=== PATIENT | male | born 1980 | race Caucasian/White ===

== ENCOUNTER 2017-07-02 12:32 | Inpatient (IN) ==
[2017-07-02] MEDS ORDERED: MULTI-VITAMIN PLAIN TABLET PO ONE (14:06)
[2017-07-02] MEDS ORDERED: NS 1,000 ML IV ONE (14:06)
--- NOTE | 2017-07-02 14:06 | Emergency Department Report ---
Alcohol HPI - General Chief Complaint: Alcohol Stated Complaint: detox,seizures Time Seen by Provider: 07/02/17 12:40 Source: patient, RN notes reviewed, old records reviewed Mode of arrival: wheelchair Limitations: no limitations - History of Present Illness HPI narrative: 37yo man presented to the ER for evaluation of alcohol +/- withdrawal. Per staff : pt has been staying at a local homeless retirement. Has been drinking heavily since his released from [place]. The retirement can no longer help/care for him. Other facilities in the area will no longer accept the pt. He is a vet, so [facility] Pt has been drinking 2 pints of alcohol daily MD complaint: alcohol intoxication, alcohol withdrawal, alcohol dependence Last drink: just [employer] Chronic alcohol use: Yes Previous visits for alcohol intoxication: Yes Recent trauma: No Treatments prior to arrival: none - Related Data Home Medications Medication Instructions Recorded Confirmed Ibuprofen 200 mg PO Q4H PRN 07/02/17 07/02/17 Allergies Allergy/AdvReac Type Severity Reaction Status Date / Time No Known Allergies Allergy Verified 07/02/17 13:13 Review of Systems Limitations: ROS unobtainable due to patient's medical condition PFSH Patient Stated Medical History Sleep Apnea Yes Hepatitis Yes Ulcer Yes Other GI Yes: liver disease stage 4 Other Yes: Dark urine Other Hematologic Yes: Hepatitis C Depression Yes Substance Use Disorder Yes: Heroin Medical History Updates: Chronic alcoholism - Social History Smoking status: Current every day smoker Substance use type: heroin Alcohol intake frequency: 3 or more drinks per day Current residence: Apartment/Private Home Physical Exam - Limitations Limitations: no limitations - General General appearance: appears intoxicated, other (Sleeping; arousable) - Normal Exams: Head:: Normocephalic without trauma Eyes:: Pupils are PERRLA w/ EOMI, No scleral icterus, irritation, or foreign bodies noted ENMT:: No facial trauma, nasal exudates, pharyngeal erythema, or exudates are noted Neck:: Full range of motion, without adenopathy Chest/Respirations:: Clear all kimble, with good airflow Cardiovascular:: Regular rate and rhythm, without murmur or gallop Abdomen:: Bowel sounds positive, soft, non-tender Lymphatic:: No lymphadenopathy Musculoskeletal:: No tenderness, or deformity noted Integumentary:: No rashes, hives, or bruising noted Neurological:: cranial nerves, motor/sensory/cerebellar, exams w/o gross deficits - Psychiatric Psychiatric exam: Present: other (Intoxicated) Course - Consultations Consultation #1: Hospitalist: Discussed pt with hospitalist and possible dispo. After discussion , hospitalist will admit for continued treatment. Time: 15:45 Vital Signs Temperature 98 F 07/02/17 12:50 Pulse Rate 132 H 07/02/17 12:50 Respiratory Rate 25 H 07/02/17 12:50 Blood Pressure 138/94 H 07/02/17 12:50 Pulse Oximetry 97 07/02/17 12:50 Temperature 98 F 07/02/17 12:50 Pulse Rate 111 H 07/02/17 13:45 Respiratory Rate 22 07/02/17 13:45 Blood Pressure 149/86 H 07/02/17 13:45 Pulse Oximetry 93 07/02/17 13:45 Alcohol - MDM Narrative Medical decision making narrative: Acutely intoxicated pt with elevated gap, dehydration, and numerous electrolyte abn's. After obs and treatment in the ER, contacted hospitalist, who will admit pt for further eval/treatment. Discussed pts Peer Daisy and 'Trey Butler's' attempts [facility]. - Differential Diagnosis Differential diagnosis: Likely: alcohol withdrawal delirium, hypomagnesemia, alcohol intoxication, alcohol withdrawal syndrome - Medical Records Attestation: I reviewed the patient's medical records. - Lab Data Attestation: I reviewed the patient's lab results. Result diagrams: 07/02/17 14:24 07/02/17 14:24 - Radiology Data Attestation: I reviewed the patient's radiology results. Disposition Clinical Impression: Dehydration, Hypokalemia Alcoholic intoxication Qualifiers: Complication of substance-induced condition: with unspecified complication Qualified Code(s): F10.929 - Alcohol use, unspecified with intoxication, unspecified Disposition: 02 To [facility] [place] Condition: Improved Time of Disposition: 16:00 - Seen By: physician
[2017-07-02] MEDS: SALINE FLUSH 10ml SYRINGE IVF PRN ×3 (14:21→23:28)
--- NOTE | 2017-07-02 14:28 | XRay Report ---
Indication: EtOH intox PROCEDURE: XR chest 1V: Encounter: Initial Comparison: November 14, 2016 FINDINGS: The lungs are clear. There is no abnormal airspace opacity, pleural effusion or pneumothorax identified. The heart size, pulmonary vasculature and mediastinum are within normal limits. No significant skeletal abnormality is seen. IMPRESSION: No acute cardiopulmonary abnormality. .
[2017-07-02] MEDS ORDERED: POTASSIUM CHLORIDE INJ 20 MEQ in NS 1,000 ML IV ONE (14:50)
[2017-07-02] MEDS ORDERED: NS with KCL 20 mEq 1,000 ML IV ONE (15:15)
[2017-07-02] MEDS ORDERED: PHENOBARBITAL 130mg/ml INJECTION IV PRN (16:22)
[2017-07-02] MEDS ORDERED: FOLIC ACID 5 MG/ML INJECTION IVP SCH (16:22)
[2017-07-02] MEDS ORDERED: THIAMINE 200mg/2ml INJECTION IVP SCH (16:22)
[2017-07-02] MEDS ORDERED: NITROGLYCERIN 0.1 MG/HR PATCH TD PRN (16:29)
[2017-07-02 16:31] VITALS: BMI 28.8
--- NOTE | 2017-07-02 16:38 | History & Physical Report ---
History of Present Illness Date: 07/02/17 Chief complaint: acute alcohol intoxication, hypokalemia HPI: Patient is a 37-year-old male with a long-standing history of alcohol abuse. Patient resides in [place] with his , and reports that he has been drinking a 5th of vodka daily for the past 3 or 4 months. reports recently she told patient he needs to live elsewhere if he is going to continue to use alcohol daily. Though patient denies being acutely homicidal or suicidal, does report that last week he did make a statement about jumping off stand [place] and ending his life. He has never had a previous suicide attempt. He was brought to the emergency room due to his acute intoxication for further evaluation and treatment. He was found to be significantly dehydrated with a sodium of 146 and potassium of 2.2. LFTs are elevated with an AST of 263, ALT 121, total bilirubin 2.3. Quantitative alcohol is 387. He is noted to be tachycardic with a heart rate in the 120s. Given this acute status, accompanied with electrolyte abnormalities. The hospitalist services were contacted and accepted patient for inpatient admission for further evaluation and treatment. Review of Systems All systems PM: 10-point ROS was reviewed, no additional remarkable complaints except - Gastrointestinal Gastrointestinal: Present: nausea - Neurological Neurological: Present: tremor(s) Past Medical History Medical History Updates: Chronic alcoholism. Hepatitis C. 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 Housing: apartment (with ) Current occupational status: unemployed Current residence: Apartment/Private Home Social history: No PCP Medications Home Medications Medication Instructions Recorded Confirmed Type Ibuprofen 200 mg PO Q4H PRN 07/02/17 07/02/17 History Allergies Allergy/AdvReac Type Severity Reaction Status Date / Time No Known Allergies Allergy Verified 07/02/17 13:13 Exam Vital Signs: Temperature 95.4 F L 07/02/17 16:22 Pulse Rate 127 H 07/02/17 16:22 Respiratory Rate 20 07/02/17 16:22 Blood Pressure 120/66 07/02/17 16:22 Pulse Oximetry 95 07/02/17 16:22 Telemetry Rhythm: Sinus Tachycardia (120) Height/Weight/BMI: Height 1.7 m Weight 83.4 kg Body Mass Index 28.8 - Constitutional Present: no acute distress, well nourished, well developed - Routine HEENT Exam Eye: Present: EOMI ENT: Present: mucous membranes moist, dentition normal - Routine Respiratory Exam Present: CTA bilaterally. Absent: wheezes - Routine Cardiovascular Exam Present: RRR, S1, S2, tachycardia. Absent: murmur - Routine Abdominal Exam Present: soft, normoactive bowel sounds, tenderness (Epigastric), non distended - Routine Extremities Exam Present: full ROM - Routine Back/Spine/Pelvis Exam Back/Spine: Present: full ROM - Routine Skin Exam Present: intact, dry, warm - Routine Neurological Exam Present: alert, oriented X3, CN II-XII intact, tremors (Bilateral hands) - Routine Psychiatric Exam Present: normal affect, cooperative Results - Labs CBC & Chem 7: 07/02/17 14:24 07/02/17 14:24 Assessment and Plan (1) Alcoholic intoxication Current visit: Yes Status: Acute (2) Hypokalemia Current visit: Yes Status: Acute Assessment and Plan: Impression Acute alcohol intoxication- with chronic alcohol use Hypokalemia- POA 2.2 Hypernatremia- POA- 146 Elevated LFTs- POA Thrombocytopenia Nausea/vomiting History of hepatitis C Tobacco Dependence Plan Admit patient inpatient status under care of Dr. Isabel for acute alcohol intoxication, Hypokalemia with hypernatremia Seizure precautions, Ativan as needed. Patient did receive a one-time dose of Librium while in the emergency room. Continue with IV fluids for ongoing hydration Zofran and Reglan as needed for nausea Protonix 40 milligrams IV twice a day for protection. Given epigastric tenderness Will replace IV potassium, patient also received a one-time dose of oral potassium in the emergency room. Due to chronic alcohol use. We will replace thiamine, folate and multivitamin, vitamins. Obtain INR, Mg, Phos, TSH for laboratory completeness Monitor on cardiac telemetry Nicotine patch as needed given tobacco dependence Recheck CBC and CMP tomorrow morning to follow blood counts, renal function and electrolytes Will discuss further orders and plan of care with attending, Dr. Isabel DVT Prophylaxis: SCD's GI Prophylaxis: Protonix Resuscitation Status: Full Code - Physician Narrative Physician: Ron Isabel MD Narrative: Date: 07/02/17 Time: 1633 Have independently interviewed and examined pt. Chart reviewed. Case discussed with ED provider and my FLY WINDER. Care plan developed with my supervision; agree with above. Presents to ED secondary to continued daily ETOH consumption with increased n/v and limited oral intake over the past 5 days. No blood in emesis. 'Hemorrhoids' have been bleeding secondary loose stools. Some cough congestion. having increasing difficulty handling him at home. Lungs: decreased CV: regular MSE: intoxicated. Plan: Inpatient admission for correct of profound hypokalemia in patient with chronic Etoh use. Replace potassium-monitor lab. IVF for hydration. ETOH detox orders. IV Protonix. Zofran prn nausea. Psych consult due to anxiety. SCD for DVT prevention-avoid heparin/Lovenox. Hospital Course Summary Disclaimer: The visit summary below is not to be considered part of the above Progress Note. Hospital Course: Impression Acute alcohol intoxication- with chronic alcohol use Hypokalemia- POA 2.2 Hypernatremia- POA- 146 Elevated LFTs- POA Thrombocytopenia Nausea/vomiting History of hepatitis C Tobacco Dependence Plan Admit patient inpatient status under care of Dr. Isabel for acute alcohol intoxication, Hypokalemia with hypernatremia. Seizure precautions, Ativan as needed. Patient did receive a one-time dose of Librium while in the emergency room. Continue with IV fluids for ongoing hydration. Zofran and Reglan as needed for nausea. Protonix 40 milligrams IV twice a day for protection. Given epigastric tenderness and due to suspected alcohol gastritis. Will replace IV potassium, patient also received a one-time dose of oral potassium in the emergency room. Due to chronic alcohol use. We will replace thiamine, folate and multivitamin, vitamins. Obtain INR, Mg, Phos, TSH for laboratory completeness. Monitor on cardiac telemetry. Nicotine patch as needed given tobacco dependence. Recheck CBC and CMP tomorrow morning to follow blood counts, renal function and electrolytes.
[2017-07-02] MEDS: ONDANSETRON 4 MG/2 ML INJECTION IVP PRN (17:18)
[2017-07-02] MEDS: 1/2 NS 1,000 ML IV SCH (17:23)
[2017-07-02] MEDS: PANTOPRAZOLE 40 MG INJECTION IVP SCH ×2 (17:23→23:28)
[2017-07-02] MEDS: THIAMINE 100 MG in NS 50 ML IV SCH (17:47)
[2017-07-02] MEDS ORDERED: PROMETHAZINE 25 MG INJECTION IM PRN (18:13)
[2017-07-02] MEDS: LIDOCAINE 1% INJ 10 MG, POTASSIUM CHLORIDE INJ 10 MEQ in NS 100 ML IV SCH ×4 (18:55→22:28)
[2017-07-02] MEDS: METOCLOPRAMIDE 10mg/2ml INJECTION IVP PRN (20:24)
[2017-07-02] MEDS: FOLIC ACID INJ 1 MG in NS 50 ML IVP SCH (23:29)
[2017-07-03] MEDS: SALINE FLUSH 10ml SYRINGE IVF PRN (01:35)
[2017-07-03] MEDS: ONDANSETRON 4 MG/2 ML INJECTION IVP PRN (09:31)
[2017-07-03] MEDS: PANTOPRAZOLE 40 MG INJECTION IVP SCH ×2 (09:31→21:46)
[2017-07-03] MEDS: 1/2 NS 1,000 ML IV SCH ×2 (09:32→14:22)
--- NOTE | 2017-07-03 09:42 | Progress Note ---
- Date 07/03/17 Subjective: Alphonse is seen this morning in follow up. He is eating some breakfast liquids and reports that he continues to feel nausea however wants to eat. Tremors have improved however he reports not sleeping well overnight due anxiety. Denies having chest pain, shortness of breath or other GI complaints. Potassium remains low at 2.0. Noted to have a low grade fever this morning at 100.1. Remains tachycardic 115. Objective Vital signs: Temperature 100.1 F 07/03/17 08:00 Pulse Rate 115 H 07/03/17 08:00 Respiratory Rate 16 07/03/17 08:00 Blood Pressure 135/85 07/03/17 08:00 Pulse Oximetry 94 07/03/17 00:40 Height/Weight/BMI: Height 1.7 m Weight 86 kg Body Mass Index 28.8 - Constitutional Present: no acute distress, well nourished, well developed - Routine HEENT Exam Eye: Present: EOMI ENT: Present: mucous membranes moist, dentition normal - Routine Respiratory Exam Present: CTA bilaterally. Absent: wheezes - Routine Cardiovascular Exam Present: RRR, S1, S2. Absent: murmur - Routine Abdominal Exam Present: soft, normoactive bowel sounds, non distended. Absent: tenderness - Routine Extremities Exam Present: no edema, pulses intact - Routine Skin Exam Present: intact, dry, warm - Routine Neurological Exam Present: alert, oriented X3, CN II-XII intact, moving all extremities - Routine Lymphatic Exam Lymphatic: Absent: adenopathy - Routine Psychiatric Exam Present: cooperative, anxious Results - Labs CBC & Chem 7: 07/03/17 04:45 07/03/17 10:49 Assessment and Plan (1) Alcoholic intoxication Current visit: Yes Status: Acute (2) Hypokalemia Current visit: Yes Status: Acute Assessment and Plan: Impression Acute alcohol intoxication- with chronic alcohol use Hypokalemia- POA 2.2 Hypernatremia- POA- 146 Hypomagnesemia-07/03/17-RLL Elevated LFTs- POA Thrombocytopenia Nausea/vomiting History of hepatitis C Tobacco Dependence Plan Potassium remains low at 2.2. Was given two doses of potassium PO 40Meq this morning. Will also give IV potassium bolus x 4 bags and another Po dose at 1500 this afternoon Will recheck BMP at 1700 today Magnesium and phosphorus are normal Continue to monitor telemetry, remains tachycardia 110-120. Continue with Seizure precautions, Ativan as needed. Zofran and Reglan as needed for nausea Protonix 40 milligrams IV twice a day for protection. LFTs trending down Consider PT/OT eval weakness and ambulation DVT Prophylaxis: SCD's GI Prophylaxis: Protonix Resuscitation Status: Full Code - Physician Narrative Physician: Najma Larsen MD Narrative: Date: 07/03/17 Time: 5 I have independently evaluated and examined this patient. I reviewed the chart, the patient's history, and the SENIOR RESERVATIONS AGENT/PA's documented findings as above. We discussed and formulated the assessment and plan as above with additions as below: Alphonse is calm but reports occassional tremors today, he is tolerating food, denies N/V but has minor diarrhea. Complains of minor dyspnea. Reports drinking about a fifth of vodka daily with his last drink 36-48 hours ago. NAD, alert, minimal tremor with arms outstretched; no flap Abdomen benign, sclera without icterus; occasional faint late expiratory wheeze present posterior lung kimble. Repeat potassium 2.4, magnesium 1.0, bilirubin 2.1, AST/ALT slightly improved from admission. Continue IV/by mouth replacement of potassium; initiate oral magnesium replacement. Reassess electrolytes late this afternoon. Electrolytes remained critically unstable. Telemetry reviewed by myself-sinus tach. Discussed with nursing. IV fluids for hydration discontinued as patient maintaining good intake of fluids orally. Dr. Ochoa's input appreciated. Hospital Course Summary Disclaimer: The visit summary below is not to be considered part of the above Progress Note. Hospital Course: Impression Acute alcohol intoxication- with chronic alcohol use Hypokalemia- POA 2.2 Hypernatremia- POA- 146 Elevated LFTs- POA Thrombocytopenia Nausea/vomiting History of hepatitis C Tobacco Dependence 07/02 Admit patient inpatient status under care of Dr. Isabel for acute alcohol intoxication, Hypokalemia with hypernatremia. Seizure precautions, Ativan as needed. Patient did receive a one-time dose of Librium while in the emergency room. Continue with IV fluids for ongoing hydration. Zofran and Reglan as needed for nausea. Protonix 40 milligrams IV twice a day for protection. Given epigastric tenderness and due to suspected alcohol gastritis. Will replace IV potassium, patient also received a one-time dose of oral potassium in the emergency room. Due to chronic alcohol use. We will replace thiamine, folate and multivitamin, vitamins. Obtain INR, Mg, Phos, TSH for laboratory completeness. Monitor on cardiac telemetry. Nicotine patch as needed given tobacco dependence. Recheck CBC and CMP tomorrow morning to follow blood counts, renal function and electrolytes. 07/03 Potassium remains low at 2.2. Was given two doses of potassium PO 40Meq this morning. Will also give IV potassium bolus x 4 bags and another Po dose at 1500 this afternoon Will recheck BMP at 1700 today Magnesium 1.0-oral replacement initiated Continue to monitor telemetry, remains tachycardia 110-120. Continue with Seizure precautions, Ativan as needed. Zofran and Reglan as needed for nausea Protonix 40 milligrams IV twice a day for protection. LFTs trending down Consider PT/OT eval weakness and ambulation
[2017-07-03] MEDS: LIDOCAINE 1% INJ 10 MG, POTASSIUM CHLORIDE INJ 10 MEQ in NS 100 ML IV SCH ×4 (10:16→14:07)
[2017-07-03] MEDS: METOCLOPRAMIDE 10mg/2ml INJECTION IVP PRN (12:57)
[2017-07-03] MEDS: MAGNESIUM OXIDE 400 MG TABLET PO SCH ×2 (14:07→21:45)
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
[2017-07-03] MEDS: THIAMINE 100 MG in NS 50 ML IV SCH (18:21)
[2017-07-03] MEDS: LIDOCAINE 1% 2ml INJ 10 MG, POTASSIUM CHLORIDE INJ 10 MEQ in NS 100 ML IV SCH ×4 (19:05→22:43)
[2017-07-03] MEDS: NICOTINE 14 MG PATCH TD SCH (21:45)
[2017-07-03] MEDS: FOLIC ACID INJ 1 MG in NS 50 ML IVP SCH (23:31)
[2017-07-04] MEDS: NICOTINE 14 MG PATCH TD SCH (09:02)
[2017-07-04] MEDS: PANTOPRAZOLE 40 MG INJECTION IVP SCH (09:02)
[2017-07-04] MEDS: MAGNESIUM OXIDE 400 MG TABLET PO SCH ×2 (09:02→20:24)
[2017-07-04] MEDS: NICOTINE PATCH REMOVAL TD SCH (09:03)
[2017-07-04] MEDS: SALINE FLUSH 10ml SYRINGE IVF PRN ×3 (09:03→20:23)
[2017-07-04] MEDS ORDERED: POTASSIUM PHOSPHATE IV SCH (10:00)
[2017-07-04] MEDS ORDERED: NS IV SCH (10:00)
[2017-07-04] MEDS ORDERED: LIDOCAINE 1% 2ml INJ 10 MG, POTASSIUM CHLORIDE INJ 10 MEQ in NS 100 ML IV SCH (10:00)
--- NOTE | 2017-07-04 11:03 | Progress Note ---
- Date 07/04/17 Subjective: F/U: hypokalemia, alcohol abuse with withdrawal. Alphonse is seen while resting in bed, watching TV. He reports that he is doing "ok". Continues to have issues with increased anxiety which he states is limiting his sleep at night. He denies any temors, chest pain, shortness of breath, abdominal pain, nausea, vomiting or diarrhea. He does admit to feeling like a "rock in landing in his stomach" every time he eats. He was seen and evaluated by Dr. Ochoa on 07/03/17 and treatment options were discussed. Dr. Ochoa to follow up with him today regarding the treatment plan as at the time of initial evaluation he did not feel that he could afford any medications or treatment. His appetite is stable and his bowels are moving. Labs revealed persistent thrombocytopenia (Plt 66), slight elevation in LFTs ( AST 310 and ALT 113) and persistent hypokalemia, though improve (K 2.8). Objective Vital signs: Temperature 97.6 F 07/04/17 08:00 Pulse Rate 94 07/04/17 08:00 Respiratory Rate 16 07/04/17 08:00 Blood Pressure 160/98 H 07/04/17 08:00 Pulse Oximetry 96 07/04/17 08:00 Rhythm: Normal Sinus Rhythm Height/Weight/BMI: Height 5 ft 7 in Weight 187 lb 13.341 oz Body Mass Index 28.8 Comments: Rest in bed, watching TV; no apparent distress. - Constitutional Present: no acute distress, well nourished, well developed, cooperative - Routine HEENT Exam Head: Present: normocephalic, atraumatic Eye: Present: PERRL. Absent: conjunctival icterus ENT: Present: mucous membranes moist, oropharynx clear - Routine Respiratory Exam Present: CTA bilaterally. Absent: rales, respiratory distress, rhonchi, stridor , wheezes, crackles - Routine Cardiovascular Exam Present: RRR, S1, S2 - Routine Abdominal Exam Present: soft, normoactive bowel sounds, tenderness (mild epigastric), non tender - Routine Extremities Exam Present: no edema, non tender, full ROM, pulses intact - Routine Back/Spine/Pelvis Exam Back/Spine: Present: full ROM. Absent: vertebral tenderness - Routine Musculoskeletal Exam Musculoskeletal: Present: moving extremities well - Routine Skin Exam Present: intact, dry, warm. Absent: jaundice Comments: afebrile. - Routine Neurological Exam Present: alert, oriented X3, moving all extremities, hearing grossly intact, normal speech. Absent: facial asymmetry - Routine Lymphatic Exam Lymphatic: Absent: lymphedema - Routine Psychiatric Exam Present: cooperative Results - Labs CBC & Chem 7: 07/04/17 04:46 07/04/17 16:15 Assessment and Plan (1) Hypokalemia Current visit: Yes Status: Acute (2) Alcoholic intoxication Current visit: Yes Status: Resolved Assessment and Plan: Impression Acute alcohol intoxication- with chronic alcohol use. Alcohol withdrawal symptoms and anxiety - NEW DIAGNOSIS. Hypokalemia- POA 2.2 - improving. Hypernatremia- POA- 146 - resolved. Hypomagnesemia Hypophosphatemia-07/03/17-RLL Elevated LFTs- POA Thrombocytopenia Nausea/vomiting - improving. History of hepatitis C Tobacco Dependence Plan - 07/04/17: Potassium remains low at 2.8. Was given KCl 40 mEq po this AM and NS with potassium phosphate 100cc/hr x 500cc was started. Continue to monitor labs closely. Continue to monitor closely on telemetry - currently asymptomatic in NSR. Continue with seizure precautions, Ativan as needed - though limit given abuse/ addiction potential. Zofran and Reglan as needed for nausea. Protonix changed to oral 40mg BID. Slight increase in LFTs. Abdominal/epigastric discomfort when eating. Will check lipase now. T. bili continues to trend up (T. Bili 3.5). Seen and evaluated by Dr. Ochoa on 07/03/17. Patient does not feel he can afford any new medications. No current changes in treatment plan at this time. Dr. Ochoa to continue to follow during hospitalization. Appreciate her time and expertise. Blood pressure increased. Continue to monitor closely. May consider initiation of lisinopril though concern about patient compliance post hospitalization. Recheck CBC and CMP in AM to monitor blood counts, electrolytes, renal function and LFTs. DVT Prophylaxis: SCD's GI Prophylaxis: Protonix Resuscitation Status: Full Code - Time spent with patient Time with patient PN: 30 minutes - Physician Narrative Physician: Najma Larsen MD Narrative: Date: 07/04/17 Time: 1914 I have independently evaluated and examined this patient. I reviewed the chart, the patient's history, and the ASSEMBLER CATERPILLAR SPIDER/PA's documented findings as above. We discussed and formulated the assessment and plan as above with additions as below: Alphonse reports tremulousness is improving but is having some discomfort when he swallows and feels like there is a lump in his throat. He is aware of preceding vomiting and was told he had coffee grounds in emesis. Respirations nonlabored good airflow, breath sounds are clear Abdomen is soft and nontender with active bowel sounds Fine tremor with arms outstretched Repeat potassium this afternoon 3.7-continue oral replacement only, continue to monitor electrolytes. Patient may eventually require upper endoscopy for possible gastritis, PPI converted to oral therapy twice daily earlier today. We'll not treat blood pressure at this time as modest elevation in blood pressure consistent with withdrawal. Hospital Course Summary Disclaimer: The visit summary below is not to be considered part of the above Progress Note. Hospital Course: Impression Acute alcohol intoxication- with chronic alcohol use Hypokalemia- POA 2.2 Hypernatremia- POA- 146 Elevated LFTs- POA Thrombocytopenia Nausea/vomiting History of hepatitis C Tobacco Dependence 07/02 Admit patient inpatient status under care of Dr. Isabel for acute alcohol intoxication, Hypokalemia with hypernatremia. Seizure precautions, Ativan as needed. Patient did receive a one-time dose of Librium while in the emergency room. Continue with IV fluids for ongoing hydration. Zofran and Reglan as needed for nausea. Protonix 40 milligrams IV twice a day for protection. Given epigastric tenderness and due to suspected alcohol gastritis. Will replace IV potassium, patient also received a one-time dose of oral potassium in the emergency room. Due to chronic alcohol use. We will replace thiamine, folate and multivitamin, vitamins. Obtain INR, Mg, Phos, TSH for laboratory completeness. Monitor on cardiac telemetry. Nicotine patch as needed given tobacco dependence. Recheck CBC and CMP tomorrow morning to follow blood counts, renal function and electrolytes. 07/03 Potassium remains low at 2.2. Was given two doses of potassium PO 40Meq this morning. Will also give IV potassium bolus x 4 bags and another Po dose at 1500 this afternoon Will recheck BMP at 1700 today Magnesium 1.0-oral replacement initiated Continue to monitor telemetry, remains tachycardia 110-120. Continue with Seizure precautions, Ativan as needed. Zofran and Reglan as needed for nausea Protonix 40 milligrams IV twice a day for protection. LFTs trending down Consider PT/OT eval weakness and ambulation Plan - 07/04/17: Potassium remains low at 2.8. Was given KCl 40 mEq po this AM and NS with potassium phosphate 100cc/hr x 500cc was started. Continue to monitor labs closely. Continue to monitor closely on telemetry - currently asymptomatic in NSR. Continue with seizure precautions, Ativan as needed - though limit given abuse/ addiction potential. Zofran and Reglan as needed for nausea. Protonix changed to oral 40mg BID. Slight increase in LFTs. Abdominal/epigastric discomfort when eating. Will check lipase now. T. bili continues to trend up (T. Bili 3.5). Seen and evaluated by Dr. Ochoa on 07/03/17. Patient does not feel he can afford any new medications. No current changes in treatment plan at this time. Dr. Ochoa to continue to follow during hospitalization. Appreciate her time and expertise. Blood pressure increased. Continue to monitor closely. May consider initiation of lisinopril though concern about patient compliance post hospitalization. Recheck CBC and CMP in AM to monitor blood counts, electrolytes, renal function and LFTs.
--- NOTE | 2017-07-04 16:21 | Progress Note ---
Progress Note: I spoke again with the patient today and he reported feeling better physically than he had previously, but he states that he is not interested in any psychotropic medications at this time. He does not want us to assist with arranging any type of substance abuse treatment and prefers to go home with his . Assistance offered by CM and referral information provided in case patient changes his mind.
[2017-07-04] MEDS: THIAMINE 100 MG in NS 50 ML IV SCH (17:43)
[2017-07-04] MEDS: PANTOPRAZOLE 40 MG TABLET PO SCH (17:44)
[2017-07-04] MEDS: FOLIC ACID INJ 1 MG in NS 50 ML IVP SCH (20:28)
[2017-07-05] MEDS: PANTOPRAZOLE 40 MG TABLET PO SCH ×2 (06:51→19:35)
[2017-07-05] MEDS: NICOTINE 21 MG PATCH TD SCH (09:11)
[2017-07-05] MEDS: NICOTINE PATCH REMOVAL TD SCH (09:11)
[2017-07-05] MEDS: MAGNESIUM OXIDE 400 MG TABLET PO SCH ×2 (09:11→21:03)
[2017-07-05] MEDS ORDERED: NITROGLYCERIN PATCH REMOVAL TD PRN (09:50)
[2017-07-05] MEDS: MAGNESIUM SULFATE 1gm PREMIX 1 GM/100 ML BAG IV SCH ×2 (10:30→11:31)
[2017-07-05] MEDS: SALINE FLUSH 10ml SYRINGE IVF PRN ×2 (10:32→21:04)
[2017-07-05] MEDS: FOLIC ACID 1 MG TABLET PO SCH (11:01)
--- NOTE | 2017-07-05 11:07 | Progress Note ---
- Date 07/05/17 Subjective: Alphonse is see today in follow up. He is feeling a bit better. Still has epigastric pain when swallowing dense foods. Does ok with soft foods and liquids. He reports profuse vomiting every 5 min or so prior to admission with some blood in the vomitus. No further vomiting is reported. Describes pain as sharp and fairly severe. No cough or acute SOA. No LE edema. Does not feel he is dealing with W/D sx. Denies any throat pain or oral pain. Objective Vital signs: Temperature 98.0 F 07/05/17 08:00 Pulse Rate 100 07/05/17 08:00 Respiratory Rate 18 07/05/17 08:00 Blood Pressure 142/98 H 07/05/17 08:00 Pulse Oximetry 99 07/05/17 08:00 Rhythm: Normal Sinus Rhythm Height/Weight/BMI: Height 1.7 m Weight 86.4 kg Body Mass Index 28.8 - Constitutional Present: no acute distress, well nourished, cooperative - Routine HEENT Exam Head: Present: normocephalic, atraumatic Eye: Present: EOMI, PERRL ENT: Present: mucous membranes dry Comments: Tongue- white coating - Routine Respiratory Exam Present: CTA bilaterally. Absent: rales, rhonchi, crackles - Routine Cardiovascular Exam Present: RRR, S1, S2 - Routine Abdominal Exam Present: soft, tenderness (Epigastric area under sternum. No other palpable masses or lesion. ), non distended. Absent: mass - Routine Extremities Exam Present: no edema, non tender - Routine Musculoskeletal Exam Musculoskeletal: Present: moving extremities well - Routine Skin Exam Present: intact, dry, warm - Routine Neurological Exam Present: alert, oriented X3, moving all extremities - Routine Psychiatric Exam Present: cooperative Results - Labs CBC & Chem 7: 07/05/17 04:20 07/05/17 04:20 Assessment and Plan (1) Alcoholic intoxication Current visit: Yes Status: Resolved (2) Hypokalemia Current visit: Yes Status: Acute Assessment and Plan: Impression Acute alcohol intoxication- with chronic alcohol use. Alcohol withdrawal symptoms and anxiety Hypokalemia- POA 2.2 - improving. Hypernatremia- POA- 146 - resolved. Hypomagnesemia Hypophosphatemia-07/03/17 Elevated LFTs- POA Thrombocytopenia Nausea/vomiting - improving. History of hepatitis C Tobacco Dependence Plan - 07/05/17: Continues to demonstrate absolute electrolyte deficiencies (Re-feeding syndrome due to excessive ETOH abuse?) Continue IV and oral replacement until normalized. LFTS are stable. Concern for gastritis, esophagitis, Deepti-Kelsea tears given intractable vomiting prior to admission. D/W pt. Continue PPI. Add nystatin for possible thrush and Carafate Slurry. Will need Carafate tabs on dismissal due to cost. May need scope in the future. BP/HR trending up- some physiologic withdrawal. Add metoprolol BID. Repeat labs in AM. D/W pt- questions answered. DVT Prophylaxis: SCD's GI Prophylaxis: Protonix Resuscitation Status: Full Code - Physician Narrative Physician: Najma Larsen MD Narrative: Date: 07/05/17 Time: 1325 I have independently evaluated and examined this patient. I reviewed the chart, the patient's history, and the STEEL ROLLER/PA's documented findings as above. We discussed and formulated the assessment and plan as above with additions as below: Alphonse reports improvement in tremor; swallow remains problematic as described above but has had no further nausea or vomiting. No tremor with arms outstretched today, no flap. Sclera anicteric Abdomen benign Continue stabilization of electrolytes. Agree with initiation of beta yong and Carafate. Thiamine/folic acid converted to oral administration. Requiring lorazepam approximately 3 times daily for symptomatic control. Oral lorazepam aditus alternative to IV. Hospital Course Summary Disclaimer: The visit summary below is not to be considered part of the above Progress Note. Hospital Course: Impression Acute alcohol intoxication- with chronic alcohol use Hypokalemia- POA 2.2 Hypernatremia- POA- 146 Elevated LFTs- POA Thrombocytopenia Nausea/vomiting History of hepatitis C Tobacco Dependence 07/02 Admit patient inpatient status under care of Dr. Isabel for acute alcohol intoxication, Hypokalemia with hypernatremia. Seizure precautions, Ativan as needed. Patient did receive a one-time dose of Librium while in the emergency room. Continue with IV fluids for ongoing hydration. Zofran and Reglan as needed for nausea. Protonix 40 milligrams IV twice a day for protection. Given epigastric tenderness and due to suspected alcohol gastritis. Will replace IV potassium, patient also received a one-time dose of oral potassium in the emergency room. Due to chronic alcohol use. We will replace thiamine, folate and multivitamin, vitamins. Obtain INR, Mg, Phos, TSH for laboratory completeness. Monitor on cardiac telemetry. Nicotine patch as needed given tobacco dependence. Recheck CBC and CMP tomorrow morning to follow blood counts, renal function and electrolytes. 07/03 Potassium remains low at 2.2. Was given two doses of potassium PO 40Meq this morning. Will also give IV potassium bolus x 4 bags and another Po dose at 1500 this afternoon Will recheck BMP at 1700 today Magnesium 1.0-oral replacement initiated Continue to monitor telemetry, remains tachycardia 110-120. Continue with Seizure precautions, Ativan as needed. Zofran and Reglan as needed for nausea Protonix 40 milligrams IV twice a day for protection. LFTs trending down Consider PT/OT eval weakness and ambulation Plan - 07/04/17: Potassium remains low at 2.8. Was given KCl 40 mEq po this AM and NS with potassium phosphate 100cc/hr x 500cc was started. Continue to monitor labs closely. Continue to monitor closely on telemetry - currently asymptomatic in NSR. Continue with seizure precautions, Ativan as needed - though limit given abuse/ addiction potential. Zofran and Reglan as needed for nausea. Protonix changed to oral 40mg BID. Slight increase in LFTs. Abdominal/epigastric discomfort when eating. Will check lipase now. T. bili continues to trend up (T. Bili 3.5). Seen and evaluated by Dr. Ochoa on 07/03/17. Patient does not feel he can afford any new medications. No current changes in treatment plan at this time. Dr. Ochoa to continue to follow during hospitalization. Appreciate her time and expertise. Blood pressure increased. Continue to monitor closely. May consider initiation of lisinopril though concern about patient compliance post hospitalization. Recheck CBC and CMP in AM to monitor blood counts, electrolytes, renal function and LFTs. Plan - 07/05/17: Continues to demonstrate absolute electrolyte deficiencies (Re-feeding syndrome due to excessive ETOH abuse?) Continue IV and oral replacement until normalized. LFTS are stable. Concern for gastritis, esophagitis, Deepti-Kelsea tears given intractable vomiting prior to admission. D/W pt. Continue PPI. Add nystatin for possible thrush and Carafate Slurry. Will need Carafate tabs on dismissal due to cost. May need scope in the future. BP/HR trending up- some physiologic withdrawal. Add metoprolol BID. Repeat labs in AM. D/W pt- questions answered. OK to F/U Trans[facility] if pt is willing. Can assist with resources. # [phone] for appt. Addendum entered and electronically signed by Karen Mcduffie APRN 07/05/17 11:17 : Will order esophagram to assess for structural esophageal issues.
[2017-07-05] MEDS: SUCRALFATE 1gm/10ml ORAL LIQUID PO SCH ×3 (12:32→21:03)
[2017-07-05] MEDS: NYSTATIN 500,000 units/5 ml ORAL LIQUID PO SCH ×3 (12:32→21:03)
[2017-07-05] MEDS ORDERED: LORazepam 1 MG TABLET PO PRN (13:34)
[2017-07-05] MEDS ORDERED: NITROGLYCERIN PATCH REMOVAL TD SCH (21:00)
[2017-07-06] MEDS: PANTOPRAZOLE 40 MG TABLET PO SCH ×2 (06:38→18:12)
[2017-07-06] MEDS: SUCRALFATE 1gm/10ml ORAL LIQUID PO SCH ×4 (06:38→20:56)
[2017-07-06] MEDS: FOLIC ACID 1 MG TABLET PO SCH (09:50)
[2017-07-06] MEDS: NICOTINE 21 MG PATCH TD SCH (09:50)
[2017-07-06] MEDS: MAGNESIUM OXIDE 400 MG TABLET PO SCH ×2 (09:50→20:56)
[2017-07-06] MEDS: NICOTINE PATCH REMOVAL TD SCH (09:51)
[2017-07-06] MEDS: NYSTATIN 500,000 units/5 ml ORAL LIQUID PO SCH ×4 (10:15→20:56)
--- NOTE | 2017-07-06 12:43 | Progress Note ---
- Date 07/06/17 Subjective: F/U: alcohol withdrawal, sinus tachycardia, anxiety. Alphonse is seen today while resting in bed, watching TV. He reports and appears to feel much better. He states that the addition of Carafate resolved his abdominal discomfort with eating and has been able to increase his oral intake. He denies any other new complains or concerns. No chest pain, shortness of breath, abdominal pain, nausea, vomiting or diarrhea. He was noted to have some tachycardia this morning on telemetry with a rate ~150. He denies any palpitations, heart racing, dizziness or lightheadedness now or previously. Labs continue to improve. Appetite is stable and bowels are moving. Objective Vital signs: Temperature 96.5 F L 07/06/17 08:00 Pulse Rate 115 H 07/06/17 08:00 Respiratory Rate 14 07/06/17 08:00 Blood Pressure 122/78 07/06/17 08:00 Pulse Oximetry 98 07/06/17 08:00 Rhythm: Normal Sinus Rhythm Height/Weight/BMI: Height 5 ft 7 in Weight 194 lb 7.163 oz Body Mass Index 28.8 Comments: Resting in bed, watching TV. Appears to feel better today. - Constitutional Present: no acute distress, well nourished, well developed, obese, cooperative - Routine HEENT Exam Head: Present: normocephalic, atraumatic Eye: Present: PERRL. Absent: conjunctival icterus ENT: Present: mucous membranes moist, oropharynx clear - Routine Respiratory Exam Present: CTA bilaterally. Absent: rales, respiratory distress, rhonchi, stridor , wheezes, crackles - Routine Cardiovascular Exam Present: RRR, S1, S2, tachycardia Comments: episode of tachycardia this morning with rate 150's. - Routine Abdominal Exam Present: soft, normoactive bowel sounds, non distended, non tender - Routine Extremities Exam Present: no edema, non tender, full ROM, pulses intact - Routine Back/Spine/Pelvis Exam Back/Spine: Present: full ROM. Absent: vertebral tenderness - Routine Musculoskeletal Exam Musculoskeletal: Present: moving extremities well - Routine Skin Exam Present: dry, warm. Absent: jaundice Comments: afebrile. - Routine Neurological Exam Present: alert, oriented X3, CN II-XII intact, moving all extremities, hearing grossly intact, normal speech. Absent: facial asymmetry - Routine Lymphatic Exam Lymphatic: Absent: lymphedema - Routine Psychiatric Exam Present: normal affect, cooperative Results - Labs CBC & Chem 7: 07/06/17 06:16 07/06/17 06:16 Assessment and Plan (1) Alcoholic intoxication Current visit: Yes Status: Resolved (2) Hypokalemia Current visit: Yes Status: Resolved Assessment and Plan: Impression Acute alcohol intoxication- with chronic alcohol use. Alcohol withdrawal symptoms and anxiety Hypokalemia- POA 2.2 - improving. Hypernatremia- POA- 146 - resolved. Hypomagnesemia Hypophosphatemia-07/03/17 Elevated LFTs- POA Thrombocytopenia Nausea/vomiting - improving. History of hepatitis C Tobacco Dependence Tachycardia/ectopic atrial pacemaker Plan - 07/06/17: Overall, Alphonse appears to feel much better. Continues to struggle with anxiety requiring PRN ativan. Episode of tachycardia with rate 150. Will obtain EKG now for further evaluation. Remains asymptomatic. Monitor on telemetry. Electrolyte abnormalities improved. Potassium 4.1. Mag remains slightly low at 1.5. Continue to monitor closely. LFTS are stable. Carafate added to Protonix BID with improvement. Will continue GI treatment. Recommend outpatient EGD for further evaluation. Continue nystatin for possible thrush and Carafate Slurry. Will need Carafate tabs on dismissal due to cost. Blood pressure controlled - continue to monitor with metoprolol BID. Repeat labs in AM. Anticipate discharge in near future. DVT Prophylaxis: SCD's GI Prophylaxis: Protonix Resuscitation Status: Full Code - Time spent with patient Time with patient PN: 25 minutes - Physician Narrative Physician: Najma Larsen MD Narrative: Date: 07/06/17 Time: 1420 I have independently evaluated and examined this patient. I reviewed the chart, the patient's history, and the PLUMBING TECHNICIAN/PA's documented findings as above. We discussed and formulated the assessment and plan as above with additions as below: Alphonse report swallow is better and denies tremor. He's had no palpitations or chest pain. Fluids speech, NAD, alert No tremor with arms outstretched Benign abdomen Mild residual hypomagnesemia Nursing report no withdrawal symptoms; using lorazepam for anxiety only. Twelve-lead EKG reviewed by myself-ectopic atrial pacemaker with short MS interval, anterior T-wave inversion, low-grade tachycardia. Telemetry reviewed-sinus tachycardia with variable rate, short MS interval Increase activity; as continue lorazepam for anxiety-should be using for alcohol withdrawal symptoms only. Discussed with nursing. Hydroxyzine when necessary for anxiety; will readdress use of SSRI with patient. EKG findings noted, metoprolol increased to 25 mg twice a day. Would benefit from echocardiogram to exclude alcoholic cardiomyopathy if patient wishes to pursue further studies. Hospital Course Summary Disclaimer: The visit summary below is not to be considered part of the above Progress Note. Hospital Course: Impression Acute alcohol intoxication- with chronic alcohol use Hypokalemia- POA 2.2 Hypernatremia- POA- 146 Elevated LFTs- POA Thrombocytopenia Nausea/vomiting History of hepatitis C Tobacco Dependence 07/02 Admit patient inpatient status under care of Dr. Isabel for acute alcohol intoxication, Hypokalemia with hypernatremia. Seizure precautions, Ativan as needed. Patient did receive a one-time dose of Librium while in the emergency room. Continue with IV fluids for ongoing hydration. Zofran and Reglan as needed for nausea. Protonix 40 milligrams IV twice a day for protection. Given epigastric tenderness and due to suspected alcohol gastritis. Will replace IV potassium, patient also received a one-time dose of oral potassium in the emergency room. Due to chronic alcohol use. We will replace thiamine, folate and multivitamin, vitamins. Obtain INR, Mg, Phos, TSH for laboratory completeness. Monitor on cardiac telemetry. Nicotine patch as needed given tobacco dependence. Recheck CBC and CMP tomorrow morning to follow blood counts, renal function and electrolytes. 07/03 Potassium remains low at 2.2. Was given two doses of potassium PO 40Meq this morning. Will also give IV potassium bolus x 4 bags and another Po dose at 1500 this afternoon Will recheck BMP at 1700 today Magnesium 1.0-oral replacement initiated Continue to monitor telemetry, remains tachycardia 110-120. Continue with Seizure precautions, Ativan as needed. Zofran and Reglan as needed for nausea Protonix 40 milligrams IV twice a day for protection. LFTs trending down Consider PT/OT eval weakness and ambulation Plan - 07/04/17: Potassium remains low at 2.8. Was given KCl 40 mEq po this AM and NS with potassium phosphate 100cc/hr x 500cc was started. Continue to monitor labs closely. Continue to monitor closely on telemetry - currently asymptomatic in NSR. Continue with seizure precautions, Ativan as needed - though limit given abuse/ addiction potential. Zofran and Reglan as needed for nausea. Protonix changed to oral 40mg BID. Slight increase in LFTs. Abdominal/epigastric discomfort when eating. Will check lipase now. T. bili continues to trend up (T. Bili 3.5). Seen and evaluated by Dr. Ochoa on 07/03/17. Patient does not feel he can afford any new medications. No current changes in treatment plan at this time. Dr. Ochoa to continue to follow during hospitalization. Appreciate her time and expertise. Blood pressure increased. Continue to monitor closely. May consider initiation of lisinopril though concern about patient compliance post hospitalization. Recheck CBC and CMP in AM to monitor blood counts, electrolytes, renal function and LFTs. Plan - 07/05/17: Continues to demonstrate absolute electrolyte deficiencies (Re-feeding syndrome due to excessive ETOH abuse?) Continue IV and oral replacement until normalized. LFTS are stable. Concern for gastritis, esophagitis, Deepti-Kelsea tears given intractable vomiting prior to admission. D/W pt. Continue PPI. Add nystatin for possible thrush and Carafate Slurry. Will need Carafate tabs on dismissal due to cost. May need scope in the future. BP/HR trending up- some physiologic withdrawal. Add metoprolol BID. Repeat labs in AM. D/W pt- questions answered. OK to F/U Transitional Clinic if pt is willing. Can assist with resources. # [phone] for appt. Plan - 07/06/17: Overall, Alphonse appears to feel much better. Continues to struggle with anxiety requiring PRN ativan. Episode of tachycardia with rate 150. Will obtain EKG now for further evaluation. Remains asymptomatic. Monitor on telemetry. Electrolyte abnormalities improved. Potassium 4.1. Mag remains slightly low at 1.5. Continue to monitor closely. LFTS are stable. Carafate added to Protonix BID with improvement. Will continue GI treatment. Recommend outpatient EGD for further evaluation. Continue nystatin for possible thrush and Carafate Slurry. Will need Carafate tabs on dismissal due to cost. Blood pressure controlled - continue to monitor with metoprolol BID. Repeat labs in AM. Anticipate discharge in near future.
[2017-07-06] MEDS: SALINE FLUSH 10ml SYRINGE IVF PRN (20:56)
[2017-07-07 01:22] VITALS: RESP 16; O2SAT 98
[2017-07-07] MEDS: SUCRALFATE 1gm/10ml ORAL LIQUID PO SCH ×2 (06:11→11:23)
[2017-07-07] MEDS: PANTOPRAZOLE 40 MG TABLET PO SCH (06:11)
[2017-07-07 07:27] VITALS: BP 121/81; TEMP 97.2
[2017-07-07] MEDS: MAGNESIUM OXIDE 400 MG TABLET PO SCH (08:31)
[2017-07-07] MEDS: FOLIC ACID 1 MG TABLET PO SCH (08:31)
--- NOTE | 2017-07-07 08:31 | XRay Report ---
INDICATION: alcohol abuse/possible cardiomyopathy PROCEDURE: CHEST 2-VIEWS UPRIGHT (PA & LAT) Encounter: Initial COMPARISON: July 02, 2017 FINDINGS: The lungs are clear without evidence of focal abnormal airspace opacity. There is no pleural effusion or pneumothorax. The heart size, mediastinal contours and pulmonary vascularity are within normal limits. There is no significant skeletal abnormality. IMPRESSION: No acute cardiopulmonary disease. .
[2017-07-07] MEDS: NYSTATIN 500,000 units/5 ml ORAL LIQUID PO SCH ×2 (08:33→12:26)
[2017-07-07] MEDS: NICOTINE 21 MG PATCH TD SCH (08:33)
[2017-07-07] MEDS: NICOTINE PATCH REMOVAL TD SCH (08:33)
[2017-07-07 09:37] VITALS: PULSE 94
[2017-07-07] MEDS: MAGNESIUM SULFATE 1gm PREMIX 1 GM/100 ML BAG IV SCH ×2 (11:39→12:25)
--- NOTE | 2017-07-07 14:15 | Discharge Summary ---
Discharge Information Date of admission: 07/02/17 15:56 Anticipated date of discharge: 07/07/17 Attending Physician: Najma Larsen MD Consults: Consulting Provider: Sole Ochoa Reason For Exam: Chronic alcohol use, depression, anxiety - Discharge Diagnosis (1) Alcoholic intoxication Status: Resolved (2) Hypokalemia Status: Resolved Acute alcohol intoxication- with chronic alcohol use. Alcohol withdrawal symptoms and anxiety Hypokalemia- POA 2.2 - resolved. Hypernatremia- POA- 146 - resolved. Hypomagnesemia - improved. Hypophosphatemia - resolved. Elevated LFTs - improved. Thrombocytopenia - improved Nausea/vomiting - resolved. History of hepatitis C Tobacco Dependence Tachycardia/ectopic atrial pacemaker - Laboratory Labs: 07/07/17 04:57 07/07/17 04:57 - Radiology Radiology: Date of Exam: 07/02/17 PROCEDURE: XR chest 1V: FINDINGS: The lungs are clear. There is no abnormal airspace opacity, pleural effusion or pneumothorax identified. The heart size, pulmonary vasculature and mediastinum are within normal limits. No significant skeletal abnormality is seen. IMPRESSION: No acute cardiopulmonary abnormality. Date of Exam: 07/06/17 PROCEDURE: CHEST 2-VIEWS UPRIGHT (PA & LAT) FINDINGS: The lungs are clear without evidence of focal abnormal airspace opacity. There is no pleural effusion or pneumothorax. The heart size, mediastinal contours and pulmonary vascularity are within normal limits. There is no significant skeletal abnormality. IMPRESSION: No acute cardiopulmonary disease. History of Present Illness HPI: Patient is a 37-year-old male with a long-standing history of alcohol abuse. Patient resides in [place] with his , and reports that he has been drinking a 5th of vodka daily for the past 3 or 4 months. reports recently she told patient he needs to live elsewhere if he is going to continue to use alcohol daily. Though patient denies being acutely homicidal or suicidal, does report that last week he did make a statement about jumping off [employer] and ending his life. He has never had a previous suicide attempt. He was brought to the emergency room due to his acute intoxication for further evaluation and treatment. He was found to be significantly dehydrated with a sodium of 146 and potassium of 2.2. LFTs are elevated with an AST of 263, ALT 121, total bilirubin 2.3. Quantitative alcohol is 387. He is noted to be tachycardic with a heart rate in the 120s. Given this acute status, accompanied with electrolyte abnormalities. The hospitalist services were contacted and accepted patient for inpatient admission for further evaluation and treatment. Objective Vital signs: Temperature 97.2 F 07/07/17 07:24 Pulse Rate 94 07/07/17 08:00 Respiratory Rate 16 07/07/17 07:24 Blood Pressure 121/81 07/07/17 07:24 Pulse Oximetry 98 07/07/17 07:24 Rhythm: Normal Sinus Rhythm Height/Weight/BMI: Height 1.7 m Weight 87.7 kg Body Mass Index 28.8 - Constitutional Present: no acute distress, well nourished, well developed - Routine HEENT Exam Head: Present: normocephalic Eye: Present: PERRL ENT: Present: mucous membranes moist, oropharynx clear - Routine Respiratory Exam Present: CTA bilaterally - Routine Cardiovascular Exam Present: RRR, S1, S2 - Routine Abdominal Exam Present: soft, normoactive bowel sounds, non distended, non tender - Routine Extremities Exam Present: no edema - Routine Skin Exam Present: intact, dry, warm - Routine Neurological Exam Present: alert, oriented X3, normal speech - Routine Psychiatric Exam Present: normal affect, normal thought process, cooperative Hospital Course This is a general summary of the patient's hospital course. For more details refer to the complete medical record. Hospital course: 07/02/17: ADMISSION Inpatient status under care of Dr. Isabel for acute alcohol intoxication, Hypokalemia with hypernatremia. Placed in seizure precautions; Librium given. IV thiamine and folate ordered. IVF provided as well as IV potassium. He was placed on telemetry. Protonix was initiated for suspicion of gastritis. Nicotine patch ordered for tobacco dependence. 07/03/17 Potassium remains low at 2.2 - replaced via oral and IV routes with minimal improvement to 2.4. Mag also was low at 1.0 and IV bolus was ordered. LFTs trending down. Sinus tach on telemetry. Oral intake improving and IVF were dc'd. 07/04/17 Potassium remains low at 2.8; phosphorous was 2.1. Was given KCl 40 mEq po, NS with potassium phosphate 100cc/hr x 500cc was started. Protonix changed to oral 40mg BID. Slight increase in LFTs. Abdominal/ epigastric discomfort when eating; normal lipase 203. T. bili trending up (3.5) . Seen and evaluated by Dr. Ochoa on 07/03/17. Patient does not feel he can afford any new medications. 07/05/17 Continues to demonstrate absolute electrolyte deficiencies (Re-feeding syndrome due to excessive ETOH abuse?) Continue IV and oral replacement until normalized. Concern for gastritis, esophagitis, Deepti-Kelsea tears given intractable vomiting prior to admission. Continue PPI. Added nystatin for possible thrush and Carafate Slurry. May need scope in the future. BP/HR trending up - some physiologic withdrawal. Add metoprolol BID. Tremors improving. Thiamine/folic acid converted to oral administration. OK to F/U Transitional Clinic if pt is willing. Can assist with resources. # [phone] for appt. 07/06/17 Potassium 4.1. Mag remains slightly low at 1.5. Blood pressure better controlled on metoprolol. Brief episode of sinus tach; EKG showed short AK interval, anterior T-wave inversion, low-grade tachycardia. Metoprolol increased to 25 mg BID. Hydroxyzine PRN anxiety rather than ativan. 07/07/17: DISCHARGE HOME Alphonse reports an intent to quit drinking alcohol. Echo performed - report pending at discharge. Rx: KDur 20 mEq daily, Magox 400 mg daily, hydroxyzine 25 mg PRN anxiety, metoprolol 25 mg BID, Carafate tabs (dissolved in 5-10 ml water) and Protonix, b -complex vitamins. Dr. Ochoa also recommends sertraline 50 mg daily for depression/anxiety/PTSD - Rx provided. F/U with Dr. Riddle in 1 week. Time spent with patient: discharge greater than 30 minutes Resuscitation Status: Full Code Discharge Plan - Discharge Disposition Discharge Date: 07/07/17 Disposition: 01 Discharged Home, Self-Care *Condition: Improved Reason For Visit (Visit label in EMR): Hypokalemia - Discharge Medications *Discharge Medications: New Cyanocobalamin/Folic AC/Vit B6 [B Complex-Folic Acid Tablet] 1 each PO WB # 30 tab HydrOXYzine [Atarax] 25 mg PO Q6H PRN #20 tab PRN Reason: Anxiety Magnesium Oxide [Magox] 400 mg PO HS #14 tab Metoprolol Tartrate [Lopressor] 25 mg PO BIDWM #60 tab Pantoprazole Tab [Protonix Tab] 40 mg PO ACBID #60 tab Potassium Chloride [K-DUR 20 mEq Tablet] 20 meq PO WB #14 tab Sucralfate [Carafate] 1 gm PO ACHS #120 tab Sertraline HCl [Zoloft] 50 mg PO DAILY #30 tab Discontinued Ibuprofen 200 mg PO Q4H PRN PRN Reason: Pain - Discharge Packet/Instructions *Diet: Regular, as tolerated. Avoid alcohol use. *Activity: As tolerated. *Pain Management/Treatment: May use heating pads or ice packs if needed. *Wound Care: Not applicable. Additional Instructions: Follow up with Dr. Riddle about echo results. *Expected Signs/Symptoms: You may have some mild tremors and/or anxiety. Rx medications should help these symptoms. You may feel tired/fatigued from your hospital stay. *Notify Physician if: Severe headache, stroke-like symptoms, chest pain, shortness of breath, vomiting/diarrhea or dehydration, increased abdominal pain or if you see blood or a black color in vomit or stool, any new concerns. *During Business Hours Contact: Dr. Riddle's office. *After Business Hours Contact: The on-call physician for Dr. Riddle. If symptoms are dire, activate 911. *Pending Lab/Results: Follow up w/your PCP Outpatient Orders: BMP - Basic Metabolic - [facility] Time Frame: 1 Week, Location: None Selected MAG - Magnesium - [facility] Time Frame: 1 Week, Location: None Selected - Referrals/Follow Up - Patient Handouts Patient Handouts: Hypokalemia (GEN) - Dismissal Complete Discharge Instructions are:: Complete Physician Narrative - Narrative Attestation Narrative: Date: 07/07/17 Time: 1520 I have independently evaluated and examined this patient. I reviewed the chart, the patient's history, and the AUTOMOBILE AND PROPERTY UNDERWRITER/PA's documented findings as above. We discussed and formulated the assessment and plan as above with additions as below: Alphonse reports that he feels better overall today; he's needed minimal medication for control of anxiety and is swallowing with minimal difficulty today. He denies tremor. No tremor with arms outstretched, appears calm. Abdomen benign. Echocardiogram pending; function appears good by my review but left atrium enlarged. Call placed to Dr. Ochoa to review options for anxiety management --> sertraline ordered as noted. Potassium remains well-controlled after replacement of more than 700 mEq during the hospital course. Discharge anticipated later today.
--- NOTE | 2017-07-08 10:46 | Echocardiogram ---
DATE OF PROCEDURE July 07, [address] Ron Isabel This is a two-dimensional echo with spectral Doppler, color-flow and M-mode. It was obtained in a patient with tachyarrhythmias. Left atrium is dilated. Left ventricular end-diastolic dimension is normal. Left ventricle wall thickness is increased. LV systolic function is reduced with global hypokinesia with ejection fraction about 30-35%. Right atrium is normal. Right ventricle is normal. Aortic root dimension is normal. Mitral valve is morphologically normal with mild mitral regurgitation. Aortic valve appears to be normal. Tricuspid valve shows mild tricuspid regurgitation with moderate pulmonary hypertension with estimated pulmonary artery systolic pressure of 56. Pulmonary valve shows no pulmonary insufficiency. There is no pericardial effusion. IMPRESSION 1. Global hypokinesia with ejection fraction of about 30-35%. 2. Left atrial dilation. 3. Left ventricular hypertrophy. 4. Mild mitral regurgitation. 5. Mild tricuspid regurgitation with moderate pulmonary hypertension with estimated pulmonary artery systolic pressure of 56. MTDD
== END 2017-07-07 16:43 | disposition home or self-care (01) | DRG 897 ==
LOC: ED 12:32 → MED 15:56 → SUATTDRO 15:56 → MED 16:17
PROVIDERS: ADMIT Hospitalist; ATTEND Internal Medicine

== ENCOUNTER 2017-09-08 13:06 | Observation (INO) ==
[2017-09-08] MEDS: NS 1,000 ML IV SCH ×2 (14:06→20:33)
--- NOTE | 2017-09-08 15:41 | Emergency Department Report ---
General Adult HPI - General Chief complaint: Medical Emergency <August,[facility] 09/08/17 19:35> Stated complaint: intoxication,blisters on feet <August,[facility] 09/08/17 19:35> Time Seen by Provider: 09/08/17 13:17 <August,[facility] 09/08/17 19:35> - History of Present Illness HPI narrative: 37-year-old male returns to emergency department after leaving [place]. He states he has been drinking a pint each morning and a pint each evening of vodka. He thinks his blood alcohol level is probably 6-8 times the legal limit. His has a PFA against him and he has been in contact with this morning and she talked him into coming back into the hospital. He states he is not suicidal. He said he was just standing at the bridge overlying the [facility] and considered jumping. He called and told her this and she made him come back to the ER again today. He says he has been living under a bridge for the last couple of days and has no vertigo. <Idris Azul 09/08/17 15:41> - Related Data Home Medications Medication Instructions Recorded Confirmed Acetaminophen [Acetaminophen Extra 1,000 mg PO Q6H PRN 09/03/17 09/08/17 Strength] Previous Rx's Medication Instructions Recorded Ondansetron [Zofran Odt] 1 tab PO Q6HR PRN #20 tab 09/03/17 Oxazepam [Serax] 1 tab PO TID PRN #30 cap 09/03/17 <August,[facility] 09/08/17 19:35> Allergies Allergy/AdvReac Type Severity Reaction Status Date / Time No Known Allergies Allergy Verified 09/03/17 16:05 <August,[facility] 09/08/17 19:35> Review of Systems All systems: reviewed and negative except as stated <Idris Azul 15:41> [facility] Patient Stated Medical History Cardiac Arrhythmia Yes: A-FIB PER PT Sleep Apnea Yes Hx Renal Disease Yes: STAGE 3 Depression Yes <August,[facility] 09/08/17 19:35> Surgical History: Hernia repair <Idris Azul 09/08/17 15:41> - Social History Smoking status: Current every day smoker <Idris Azul 09/08/17 15:41> Substance use type: does not use <Idris Azul 09/08/17 15:41> Alcohol intake frequency: 3 or more drinks per day <Idris Azul 09/08/17 15:41> Physical Exam - Limitations Limitations: no limitations <Idris Azul 09/08/17 15:41> - General General appearance: alert, appears intoxicated <Jorge AlbertoIdris Tang 09/08/17 15: 41> - Normal Exams: Head:: Normocephalic without trauma <Idris Azul 09/08/17 15:41> Chest/Respirations:: Clear all kimble, with good airflow, and symmetry bilaterally <Idris zAul 09/08/17 15:41> Cardiovascular:: Regular rate and rhythm, without murmur or gallop, Pulses 2+ all extremities, capillary refill, <2 seconds all extremities <Idris Azul 09/08/17 15:41> Course - Consultations Consultation #1: [place] Tele[facility]: Will admit for observation until sober. Will correct dehydration and electrolyte abn's while admitted. <August,Yoel 09/08/17 19:35> Time: 19:07 <eb 09/08/17 19:08> Vital Signs Temperature 97.8 F 09/08/17 13:10 Pulse Rate 118 H 09/08/17 13:10 Respiratory Rate 20 09/08/17 13:10 Blood Pressure 133/100 H 09/08/17 13:10 Pulse Oximetry 96 09/08/17 13:10 Temperature 97.8 F 09/08/17 13:10 Pulse Rate 85 09/08/17 14:15 Respiratory Rate 16 09/08/17 19:09 Blood Pressure 115/71 09/08/17 14:11 Pulse Oximetry 92 09/08/17 14:15 <eb 09/08/17 19:35> Medical Decision Making - [facility] Narrative Medical decision making narrative: Care of pt assumed at 1800. Pt has evidence of acute on chronic hepatitis. Profound free water deficit, based on sodium levels from first ER visit today. Pt has dropped his EtOH level by 80mg/dL in 4 hours. At that rate, anticipate a 24 hour stay until pt is 'sober enough' for [place] evaluation and electrolyte correction. Contacted hospitalist for admission for further treatment and to observe until sober enough for acute psych eval. Because pt has violated his ex-'s PFA against him (on at least two occasions today), PD has stated that pt will be arrested upon his d/c from the hospital. Admitting physician notified. <August,Yoel M - 09/08/17 19:35> Patient agreed to stay in the ED while he sobered up. He understands that we may have to place a hold if he tries to leave. Blood alcohol is 360 and evaluation, was for suicidal ideation, therefore he cannot leave until he has sobered up. At this point he is being admitted for observation because this will take anywhere from 8-10 hours due to his history of elevated liver enzyme and liver insufficiency. Once alcohol level is below 100, he can be evaluated by psychiatry/social work for suicidality. Because of the PFA in place, we have not had him call his or speak with her while in the hospital. <Idris Azul - 09/08/17 18:25> - Medical Records Medical records reviewed: Yes: I reviewed the patient's medical records. <Idris Azul - 09/08/17 18:08> - Lab Data Lab Results 09/08/17 09/08/17 09/08/17 Range/Units 15:18 15:32 15:32 Magnesium 1.4 L (1.6-2.3) MG/DL Ur Collection Type Urine, void-cc/notcc Urine Color Yellow (YELLOW) Urine Clarity Clear Urine pH 6.0 (5.0-8.0) Ur Specific [place] 1.015 (1.015-1.025) Urine Protein 2+ A (NEGATIVE) Urine Glucose (UA) Negative (NEGATIVE) Urine Ketones Negative (NEGATIVE) Urine Occult Blood 3+ A (NEGATIVE) Urine Nitrate Negative (NEGATIVE) Urine Bilirubin Negative (NEGATIVE) Urine Urobilinogen 1.0 (NORMAL) EU/DL Ur Leukocyte Esterase Negative (NEGATIVE) Urine RBC 10-20 H (0-3) /HPF Urine WBC None seen (0-5) /HPF Urine Bacteria Trace H (NEGATIVE) Ur Culture Indicated? Cult not indicated Urine Opiates Screen ng/mL Ur Oxycodone Screen ng/mL Urine Methadone Screen ng/mL Ur Propoxyphene Screen ng/mL Ur Barbiturates Screen ng/mL U Tricyclic Antidepress ng/mL Ur Phencyclidine Scrn ng/mL Ur Amphetamines Screen ng/mL U Methamphetamines Scrn ng/mL U Benzodiazepines Scrn ng/mL Urine Cocaine Screen ng/mL U Cannabinoids Screen ng/mL Ur Drug Screen Confirm Alcohol, Quantitative 386 (<10) mg/dL 09/08/17 09/08/17 Range/Units 15:32 15:32 Magnesium (1.6-2.3) MG/DL Ur Collection Type Urine Color (YELLOW) Urine Clarity Urine pH (5.0-8.0) Ur Specific [place] (1.015-1.025) Urine Protein (NEGATIVE) Urine Glucose (UA) (NEGATIVE) Urine Ketones (NEGATIVE) Urine Occult Blood (NEGATIVE) Urine Nitrate (NEGATIVE) Urine Bilirubin (NEGATIVE) Urine Urobilinogen (NORMAL) EU/DL Ur Leukocyte Esterase (NEGATIVE) Urine RBC (0-3) /HPF Urine WBC (0-5) /HPF Urine Bacteria (NEGATIVE) Ur Culture Indicated? Urine Opiates Screen Negative ng/mL Ur Oxycodone Screen Negative ng/mL Urine Methadone Screen Negative ng/mL Ur Propoxyphene Screen Negative ng/mL Ur Barbiturates Screen Negative ng/mL U Tricyclic Antidepress Negative ng/mL Ur Phencyclidine Scrn Negative ng/mL Ur Amphetamines Screen Negative ng/mL U Methamphetamines Scrn Negative ng/mL U Benzodiazepines Scrn Positive ng/mL Urine Cocaine Screen Negative ng/mL U Cannabinoids Screen Negative ng/mL Ur Drug Screen Confirm Sent out Alcohol, Quantitative (<10) mg/dL <AugustYoel M - 09/08/17 19:35> Lab Results 09/08/17 09/08/17 09/08/17 Range/Units 15:18 15:32 15:32 Magnesium 1.4 L (1.6-2.3) MG/DL Ur Collection Type Urine, void-cc/notcc Urine Color Yellow (YELLOW) Urine Clarity Clear Urine pH 6.0 (5.0-8.0) Ur Specific [place] 1.015 (1.015-1.025) Urine Protein 2+ A (NEGATIVE) Urine Glucose (UA) Negative (NEGATIVE) Urine Ketones Negative (NEGATIVE) Urine Occult Blood 3+ A (NEGATIVE) Urine Nitrate Negative (NEGATIVE) Urine Bilirubin Negative (NEGATIVE) Urine Urobilinogen 1.0 (NORMAL) EU/DL Ur Leukocyte Esterase Negative (NEGATIVE) Urine RBC 10-20 H (0-3) /HPF Urine WBC None seen (0-5) /HPF Urine Bacteria Trace H (NEGATIVE) Ur Culture Indicated? Cult not indicated Urine Opiates Screen ng/mL Ur Oxycodone Screen ng/mL Urine Methadone Screen ng/mL Ur Propoxyphene Screen ng/mL Ur Barbiturates Screen ng/mL U Tricyclic Antidepress ng/mL Ur Phencyclidine Scrn ng/mL Ur Amphetamines Screen ng/mL U Methamphetamines Scrn ng/mL U Benzodiazepines Scrn ng/mL Urine Cocaine Screen ng/mL U Cannabinoids Screen ng/mL Ur Drug Screen Confirm Alcohol, Quantitative 386 (<10) mg/dL 09/08/17 09/08/17 Range/Units 15:32 15:32 Magnesium (1.6-2.3) MG/DL Ur Collection Type Urine Color (YELLOW) Urine Clarity Urine pH (5.0-8.0) Ur Specific [place] (1.015-1.025) Urine Protein (NEGATIVE) Urine Glucose (UA) (NEGATIVE) Urine Ketones (NEGATIVE) Urine Occult Blood (NEGATIVE) Urine Nitrate (NEGATIVE) Urine Bilirubin (NEGATIVE) Urine Urobilinogen (NORMAL) EU/DL Ur Leukocyte Esterase (NEGATIVE) Urine RBC (0-3) /HPF Urine WBC (0-5) /HPF Urine Bacteria (NEGATIVE) Ur Culture Indicated? Urine Opiates Screen Negative ng/mL Ur Oxycodone Screen Negative ng/mL Urine Methadone Screen Negative ng/mL Ur Propoxyphene Screen Negative ng/mL Ur Barbiturates Screen Negative ng/mL U Tricyclic Antidepress Negative ng/mL Ur Phencyclidine Scrn Negative ng/mL Ur Amphetamines Screen Negative ng/mL U Methamphetamines Scrn Negative ng/mL U Benzodiazepines Scrn Positive ng/mL Urine Cocaine Screen Negative ng/mL U Cannabinoids Screen Negative ng/mL Ur Drug Screen Confirm Sent out Alcohol, Quantitative (<10) mg/dL <Idris Azul - 09/08/17 18:08> Disposition Clinical Impression: Suicidal ideation, Dehydration, severe, Hepatitis Acute alcohol intoxication Qualifiers: Complication of substance-induced condition: uncomplicated Qualified Code(s): F10.929 - Alcohol use, unspecified with intoxication, unspecified <09/08/17 19:35> Disposition: 02 To OBS [facility] [place] <09/08/17 19:35> Print Language: Slovenian <09/08/17 19:35> Condition: Stable <09/08/17 19:35> Prescriptions: No Action Acetaminophen [Acetaminophen Extra Strength] 1,000 mg PO Q6H PRN PRN Reason: Pain Oxazepam [Serax] 1 tab PO TID PRN #30 cap PRN Reason: Alcohol withdrawal symptoms Ondansetron [Zofran Odt] 1 tab PO Q6HR PRN #20 tab PRN Reason: n/v <09/08/17 19:35> Time of Disposition: 19:34 <09/08/17 19:35> 18:25 <Idris Azul 09/08/17 18:25> - Seen By: physician <09/08/17 19:35> physician <Idris Azul 09/08/17 18:25>
--- NOTE | 2017-09-08 19:29 | History & Physical Report ---
History of Present Illness Date: 09/08/17 Chief complaint: Alcohol intox and suicidality HPI: Mr Stallings is a 37 year old male who has presented to the emergency department this evening with alcohol intoxication and suicidality. He was in the emergency department earlier today apparently. He was brought in by his ex- earlier, and had a blood alcohol level of 440. He left against medical advice. He returns this evening after being brought in by his ex- again. He was apparently standing on a bridge with plans to jump off. He has recently become from his and has been homeless, and apparently living out under a bridge lately. This evening, he is shown to be profoundly dry and has a serum sodium of 157. BAL of 386. He is now being placed under observational status for suicidal monitoring, medical clearance. He will be placed under police custody tomorrow as he apparently has outstanding warrants against him per ER Physicians report. Please note this patient encounter was performed via the use of telemedicine technology Review of Systems All systems PM: 10-point ROS was reviewed, no additional remarkable complaints except Past Medical History Surgical History: Hernia repair Family History: As Above - Social History Smoking status: Current every day smoker Medications Home Medications Medication Instructions Recorded Confirmed Type Acetaminophen [Acetaminophen Extra 1,000 mg PO Q6H PRN 09/03/17 09/08/17 History Strength] Ondansetron [Zofran Odt] 1 tab PO Q6HR PRN #20 tab 09/03/17 09/08/17 Rx Oxazepam [Serax] 1 tab PO TID PRN #30 cap 09/03/17 09/08/17 Rx Allergies Allergy/AdvReac Type Severity Reaction Status Date / Time No Known Allergies Allergy Verified 09/03/17 16:05 Exam Vital Signs: Temperature 97.8 F 09/08/17 13:10 Pulse Rate 85 09/08/17 14:15 Respiratory Rate 16 09/08/17 19:09 Blood Pressure 115/71 09/08/17 14:11 Pulse Oximetry 92 09/08/17 14:15 Height/Weight/BMI: Height 1.7 m Weight 90.1 kg - Constitutional Present: no acute distress, well nourished, well developed - Routine HEENT Exam Head: Present: normocephalic, atraumatic Eye: Present: EOMI ENT: Present: mucous membranes dry - Routine Neck Exam Present: supple, full ROM - Routine Respiratory Exam Present: CTA bilaterally - Routine Cardiovascular Exam Present: RRR, no murmur - Routine Abdominal Exam Present: soft, non distended, non tender - Routine Extremities Exam Absent: edema - Routine Skin Exam Present: intact - Routine Neurological Exam Present: alert, oriented X3 - Routine Psychiatric Exam Present: suicidal ideation Assessment and Plan Assessment and Plan: 1. Suicidality with acute alcohol intoxication 2. Dehydration with hypernatremia and free water deficit 3. Transaminitis 4. Hypokalemia Plan This patient will be placed under observational status to the medical floor. Will continue suicide precautions. Hypotonic IVF, and will f/u sodium in AM. Alcohol withdrawal protocol has been ordered. He will need psych screen in AM. I have reviewed the provided list of home medications. Home medications which would be appropriate for administration at this time have been continued. Daytime rounding provider to please review and make further changes as necessary in the morning. Clinical progress will be monitored, and supportive care will be provided. Changes to the aforementioned plan will be made this evening as necessary. Appropriate DVT prophylaxis has been ordered. DVT Prophylaxis: SCD's - Physician Narrative Narrative: Date: 09/08/17 Time: 1926 Hospital Course Summary Disclaimer: The visit summary below is not to be considered part of the above Progress Note.
[2017-09-08] MEDS ORDERED: ACETAMINOPHEN 325 MG TABLET PO PRN (19:52)
[2017-09-08] MEDS: MULTI-VITAMIN + MINERAL TABLET PO SCH (20:27)
[2017-09-08] MEDS: D5-1/2NS with KCL 20mEq 1,000 ML IV SCH (20:27)
[2017-09-08] MEDS: FOLIC ACID 1 MG TABLET PO SCH (20:27)
[2017-09-08] MEDS: ONDANSETRON 4 MG/2 ML INJECTION IVP PRN (20:32)
[2017-09-08] MEDS ORDERED: LORazepam 2 MG TABLET PO PRN (23:21)
[2017-09-09] MEDS: ONDANSETRON 4 MG/2 ML INJECTION IVP PRN ×2 (03:21→20:55)
[2017-09-09] MEDS: SALINE FLUSH 10ml SYRINGE IVF PRN ×2 (03:21→20:55)
[2017-09-09] MEDS: D5-1/2NS with KCL 20mEq 1,000 ML IV SCH ×4 (04:32→13:16)
[2017-09-09] MEDS: MAGNESIUM SULFATE 1gm PREMIX 1 GM/100 ML BAG IV SCH ×3 (07:36→10:09)
[2017-09-09] MEDS: MULTI-VITAMIN + MINERAL TABLET PO SCH (08:53)
[2017-09-09] MEDS: FOLIC ACID 1 MG TABLET PO SCH (08:53)
[2017-09-09] MEDS: LORazepam 1 MG TABLET PO PRN ×2 (08:53→15:07)
[2017-09-09] MEDS: NICOTINE 14 MG PATCH TD SCH (12:26)
[2017-09-09 13:34] VITALS: BMI 30.7
--- NOTE | 2017-09-09 16:29 | History & Physical Report ---
History of Present Illness Date: 09/09/17 HPI: Pt presented to the ED overnight with EtOH abuse and SI. Pt currently doesn't remember much and denies any inciting event. Currently denies SI/HI and wants to go home. Denies any cp,sob but does report occasional n/v. Pt has hx of EtOH abuse and reports previous withdrawal episodes including one seizure. Last reported drink was on Friday evening. Pt reports he drinks 0.5-1 pint of vodka on most days and has been doing that on and off for years. Denies any other drug use. For complete H&P including PMH, SH, FH and ROS please see overnight H&P. Telemedicine HPI: Mr Stallings is a 37 year old male who has presented to the emergency department this evening with alcohol intoxication and suicidality. He was in the emergency department earlier today apparently. He was brought in by his ex- earlier, and had a blood alcohol level of 440. He left against medical advice. He returns this evening after being brought in by his ex- again. He was apparently standing on a bridge with plans to jump off. He has recently become from his and has been homeless, and apparently living out under a bridge lately. This evening, he is shown to be profoundly dry and has a serum sodium of 157. BAL of 386. He is now being placed under observational status for suicidal monitoring, medical clearance. He will be placed under police custody tomorrow as he apparently has outstanding warrants against him per ER Physicians report. Please note this patient encounter was performed via the use of telemedicine technology Past Medical History Surgical History: Hernia repair Family History: As Above - Social History Smoking status: Current every day smoker Medications Home Medications Medication Instructions Recorded Confirmed Type Acetaminophen [Acetaminophen Extra 1,000 mg PO Q6H PRN 09/03/17 09/08/17 History Strength] Ondansetron [Zofran Odt] 1 tab PO Q6HR PRN #20 tab 09/03/17 09/08/17 Rx Oxazepam [Serax] 1 tab PO TID PRN #30 cap 09/03/17 09/08/17 Rx Allergies Allergy/AdvReac Type Severity Reaction Status Date / Time No Known Allergies Allergy Verified 09/09/17 02:28 Exam Vital Signs: Temperature 98.4 F 09/09/17 08:00 Pulse Rate 94 09/09/17 13:05 Respiratory Rate 22 09/09/17 13:05 Blood Pressure 132/71 09/09/17 13:05 Pulse Oximetry 96 09/09/17 11:24 Height/Weight/BMI: Height 5 ft 7 in Weight 89.1 kg Body Mass Index 30.7 - Constitutional Present: no acute distress - Routine HEENT Exam Head: Present: normocephalic, atraumatic Eye: Present: EOMI ENT: Present: mucous membranes moist - Routine Neck Exam Present: supple - Routine Respiratory Exam Present: CTA bilaterally. Absent: rhonchi, wheezes - Routine Cardiovascular Exam Present: RRR, no murmur - Routine Abdominal Exam Present: soft, non distended, non tender - Routine Extremities Exam Present: no edema. Absent: cyanosis, clubbing - Routine Skin Exam Present: intact. Absent: cyanosis, erythema - Routine Psychiatric Exam Present: normal affect, normal thought process Results - Labs CBC & Chem 7: 09/09/17 04:11 09/09/17 13:18 Assessment and Plan Assessment and Plan: SI/HI -Will get psych consult -Monitor 1-1 in ICU EtOH abuse -Folate/thiamine, IV fluids -Case management -Monitor for withdrawal, CIWA protocol Hypokalemia -Possibly from vomiting, poor oral intake -Replace, recheck Thrombocytopenia -Plt 82, possibly liver disease -Check INR, peripheral smear, US Transaminitis -Likely EtOH abuse -Liver Sono Ppx -SCDs - Physician Narrative Narrative: Date: 09/09/17 Time: 1625 Hospital Course Summary Disclaimer: The visit summary below is not to be considered part of the above Progress Note.
[2017-09-10] MEDS: MULTI-VITAMIN + MINERAL TABLET PO SCH (08:25)
[2017-09-10] MEDS: FOLIC ACID 1 MG TABLET PO SCH (08:25)
--- NOTE | 2017-09-10 08:56 | Ultrasound Report ---
Indication: transaminitis PROCEDURE: US abdomen complete: Encounter: Initial Comparison: None Technique: Grayscale and color Doppler sonographic imaging of the abdomen was performed. Findings: Hepatic parenchyma is mildly heterogeneous without evidence for focal mass. The gallbladder is normal. There is no wall thickening, pericholecystic fluid, sonographic Lincoln's sign or cholelithiasis. Both the intra and extrahepatic biliary system are of normal caliber with the common duct measuring 4 mm in dimension. Pancreas is not well seen. Both kidneys are present without collecting system dilatation. The right measures 10.7 cm in length and left measures 11.6 cm. The spleen is unremarkable. The visualized portions of the aorta and IVC are unremarkable. No free fluid. Impression: Possible fatty infiltration of the liver. No bile duct obstruction. .
[2017-09-10] MEDS ORDERED: NICOTINE PATCH REMOVAL TD SCH (09:00)
[2017-09-10 09:18] VITALS: RESP 18; O2SAT 97
[2017-09-10] MEDS: NICOTINE 14 MG PATCH TD SCH (09:37)
[2017-09-10 11:03] VITALS: BP 126/75; TEMP 97.8
--- NOTE | 2017-09-10 11:59 | Discharge Summary ---
Discharge Information Date of admission: 09/08/17 19:52 Anticipated date of discharge: 09/10/17 Attending Physician: Roberth Schwartz MD - Laboratory Labs: 09/10/17 04:05 09/10/17 04:05 History of Present Illness HPI: Pt presented to the ED overnight with EtOH abuse and SI. Pt currently doesn't remember much and denies any inciting event. Currently denies SI/HI and wants to go home. Denies any cp,sob but does report occasional n/v. Pt has hx of EtOH abuse and reports previous withdrawal episodes including one seizure. Last reported drink was on Friday evening. Pt reports he drinks 0.5-1 pint of vodka on most days and has been doing that on and off for years. Denies any other drug use. For complete H&P including PMH, SH, FH and ROS please see overnight H&P. Telemedicine HPI: Mr Stallings is a 37 year old male who has presented to the emergency department this evening with alcohol intoxication and suicidality. He was in the emergency department earlier today apparently. He was brought in by his ex- earlier, and had a blood alcohol level of 440. He left against medical advice. He returns this evening after being brought in by his ex- again. He was apparently standing on a bridge with plans to jump off. He has recently become from his and has been homeless, and apparently living out under a bridge lately. This evening, he is shown to be profoundly dry and has a serum sodium of 157. BAL of 386. He is now being placed under observational status for suicidal monitoring, medical clearance. He will be placed under police custody tomorrow as he apparently has outstanding warrants against him per ER Physicians report. Please note this patient encounter was performed via the use of telemedicine technology Objective Vital signs: Temperature 97.8 F 09/10/17 08:34 Pulse Rate 78 09/10/17 11:00 Respiratory Rate 18 09/10/17 11:00 Blood Pressure 126/75 09/10/17 08:34 Pulse Oximetry 97 09/10/17 08:34 Height/Weight/BMI: Height 5 ft 7 in Weight 89.1 kg Body Mass Index 30.7 - Constitutional Present: no acute distress - Routine HEENT Exam Head: Present: normocephalic, atraumatic ENT: Present: mucous membranes moist - Routine Respiratory Exam Present: CTA bilaterally. Absent: wheezes - Routine Cardiovascular Exam Present: RRR, no murmur - Routine Abdominal Exam Present: soft, non distended, non tender - Routine Extremities Exam Present: no edema. Absent: cyanosis, clubbing - Routine Skin Exam Present: intact, dry. Absent: erythema - Routine Neurological Exam Present: alert, oriented X3 - Routine Psychiatric Exam Present: normal affect, normal thought process Hospital Course This is a general summary of the patient's hospital course. For more details refer to the complete medical record. Pt was admitted due to SI and EtOH intoxication. Pt did well during hospital stay and denied any SI. Pt was cleared by [facility] to go home and pt wanted to go home. Pt was medically stable but was found to have hematuria. Pt denied any urinary sx's and was told to follow up with pcp or urology about this. Pt was also found to have low platelets and this was likely d/t EtOH abuse. Platelets were stable and pt was told to follow up with pcp. Pt did not require any benzo's for over 24 hours upon discharge. Follow up on: Thrombocytopenia Microscopic Hematuria Discharge Plan - Discharge Disposition Disposition: Discharged Home, Self-Care *Condition: Stable Reason For Visit (Visit label in EMR): Suicidality - Discharge Medications *Discharge Medications: Continue Oxazepam [Serax] 1 tab PO TID PRN #30 cap PRN Reason: Alcohol withdrawal symptoms No Action Acetaminophen [Acetaminophen Extra Strength] 1,000 mg PO Q6H PRN PRN Reason: Pain Ondansetron [Zofran Odt] 1 tab PO Q6HR PRN #20 tab PRN Reason: n/v - Discharge Packet/Instructions *Diet: Regular *Activity: As tolerated *Pain Management/Treatment: NA *Wound Care: NA *Expected Signs/Symptoms: mild anxiety, tremors *Notify Physician if: moderate to severe tremors or anxiety *During Business Hours Contact: PCP *After Business Hours Contact: Urgent care, ED - Referrals/Follow Up *Referrals/Follow Up: Kian Riddle DO [Physician] - (Appointment for follow up on 09/18/17 at 11am) - Patient Handouts Patient Handouts: Suicide Prevention for Adults (DC) - Dismissal Complete Discharge Instructions are:: Complete Physician Narrative - Narrative Attestation Narrative: Date: 09/10/17 Time: [id number]
[2017-09-10 13:04] VITALS: PULSE 89
== END 2017-09-10 13:43 | disposition home or self-care (01) ==
LOC: ED 13:06 → CCU 13:06 → MERGE 19:52
PROVIDERS: ADMIT Hospitalist; ATTEND Internal Medicine